=== PATIENT | male | born 1990 | race Caucasian/White ===

== ENCOUNTER 2018-05-09 20:21 | Emergency (ER) | payer OTHER ==
[~2018-05-09] VITALS: Ht 185.4 cm; Wt 72.6 kg
[2018-05-09 20:21] VITALS: BP_SYST 131
[2018-05-09] MEDS ORDERED: NACL 0.9% 1,000 ML IV ONE (20:44)
[2018-05-09 22:05] LABS: BASOPHILS # (AUTO) 0.4 K/uL (0.0-0.2); BASOPHILS % (AUTO) 4.6 % (0.0-2.0); EOSINOPHILS # (AUTO) 0.1 K/uL (0.0-0.4); EOSINOPHILS % (AUTO) 0.6 % (0.0-4.0); HEMATOCRIT 47.4 % (36-54); HEMOGLOBIN 15.4 g/dL (14.0-18.0); LYMPHOCYTES # (AUTO) 1.6 K/uL (1.0-5.5); LYMPHOCYTES % (AUTO) 17.2 % (20.5-51.5); MEAN CORPUSCULAR HEMOGLOBIN 27 pg (27-31); MEAN CORPUSCULAR HGB CONC 33 % (32-36); MEAN CORPUSCULAR VOLUME 82 fL (79.0-98.0); MONOCYTES # (AUTO) 0.4 K/uL (0.0-1.0); MONOCYTES % (AUTO) 4.4 % (1.7-9.3); NEUTROPHILS # (AUTO) 7.1 K/uL (1.8-7.7); NEUTROPHILS % (AUTO) 73.2 % (40.0-70.0); PLATELET COUNT (AUTO) 422 K/uL (130-430); RED CELL DISTRIBUTION WIDTH 13.9 % (9.0-15.0); WHITE BLOOD COUNT (AUTO) 9.6 K/uL (4.8-10.8)
[2018-05-09 22:24] LABS: ANION GAP 13 (5-15); CALCIUM 9.7 mg/dL (8.4-11.0); CHLORIDE 101 mmol/L (98-107); CREATININE 0.78 mg/dL (0.55-1.30); GLUCOSE 94 mg/dL (70-99); POTASSIUM 4.4 mmol/L (3.5-5.1); SODIUM SERUM 137 mmol/L (136-145); UREA NITROGEN, BLOOD 11 mg/dL (8-21)
[2018-05-09 22:29] LABS: ALBUMIN 4.1 g/dL (3.4-4.8); ASPARTATE AMINOTRANSFERASE 21 U/L (10-37); TOTAL BILIRUBIN 0.5 mg/dL (0.0-1.0)
[2018-05-09] MEDS ORDERED: ONDANSETRON 4 MG ODT TAB PO ONE (22:30)
[2018-05-09] MEDS ORDERED: KETOROLAC TROMETHAMINE 30 MG VIAL IM ONE (22:30)
[2018-05-09 22:32] LABS: ALCOHOL, BLOOD < 3 mg/dL (<10); GFR AFRICAN AMERICAN 155 mL/min (>90); INR 1.1 (0.80-1.20); PROTHROMBIN TIME 11.3 SECS (9.5-12.5)
[2018-05-09 22:48] LABS: ALANINE AMINOTRANSFERASE 26 U/L (12-78)
[2018-05-09 23:04] VITALS: BP_SYST 127
== END 2018-05-09 22:59 ==
LOC: SED 20:21
DX: R55 Syncope and collapse (principal); F11.23 Opioid dependence with withdrawal
CPT/HCPCS: 36415; 71045; 80053; 84484; 85025; 85610; 85730; 93005; 96372; 99284; G0482; J1885; Q0162

== ENCOUNTER 2021-09-08 09:26 | Emergency (ER) | payer OTHER ==
[~2021-09-08] VITALS: Ht 188 cm; Wt 90.7 kg
[2021-09-08 09:26] VITALS: BP_SYST 150
--- NOTE | 2021-09-08 09:26 | NUR ---
BROUGHT IN BY [facility] AND [facility], PLACED IN BED #1 AND TRIAGED. REPORT GIVEN TO TYLER. ALL STAFF TO BEDSIDE.
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
--- NOTE | 2021-09-08 10:09 | NUR ---
MOTHER OF PT CALLED RE: SON. MOTHER STATES HE IS A HEROIN ADDICT AND NINOSKA ALARCON SPEAKING WITH MOTHER.
[2021-09-08] MEDS ORDERED: NALOXONE HCL 2 MG/2 ML SYR (NARCAN) IM ONE ×2 (11:45→12:00)
[2021-09-08] MEDS ORDERED: NALOXONE HCL 2 MG/2 ML SYR ONE (11:52)
[2021-09-08] MEDS ORDERED: NACL 0.9% 1,000 ML IV ONE (12:00)
--- NOTE | 2021-09-08 12:04 | NUR ---
PT IS ALERT AND ORIENTED, AWAKE. PT ASKING FOR WATER, WATER GIVEN PER REQUEST
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
[2021-09-08] MEDS ORDERED: PROCHLORPERAZINE EDISYLATE 10 MG/2 ML VIAL IM ONE (12:15)
--- NOTE | 2021-09-08 12:15 | NUR ---
DR SAUNDERS SPOKE WITH MALLY ALARCON AT [facility] DEPT
[2021-09-08 12:21] VITALS: BP_SYST 135
== END 2021-09-08 12:08 | disposition left against medical advice (07) ==
LOC: SED 09:26
DX: R41.82 Altered mental status, unspecified (principal); Z53.21 Procedure and treatment not carried out due to patient leaving prior to being seen by health care provider
CPT/HCPCS: 71045; J2310

== ENCOUNTER 2022-09-11 22:29 | Emergency (ER) | payer MEDICAID, OTHER ==
[2022-09-11 22:36] VITALS: BP_SYST 136
[2022-09-11] MEDS ORDERED: NACL 0.9% 1,000 ML IV ONE (22:45)
[2022-09-11 23:08] LABS: BASOPHILS # (AUTO) 0.1 K/uL (0.0-0.2); BASOPHILS % (AUTO) 1.1 % (0.0-2.0); EOSINOPHILS # (AUTO) 0.2 K/uL (0.0-0.4); EOSINOPHILS % (AUTO) 2.3 % (0.0-4.0); HEMATOCRIT 44.1 % (36-54); HEMOGLOBIN 15.1 g/dL (14.0-18.0); LYMPHOCYTES # (AUTO) 3.2 K/uL (1.0-5.5); LYMPHOCYTES % (AUTO) 34.9 % (20.5-51.5); MEAN CORPUSCULAR HEMOGLOBIN 29 pg (27-31); MEAN CORPUSCULAR HGB CONC 34 % (32-36); MEAN CORPUSCULAR VOLUME 84 fL (79.0-98.0); MONOCYTES # (AUTO) 0.7 K/uL (0.0-1.0); MONOCYTES % (AUTO) 8.2 % (1.7-9.3); NEUTROPHILS # (AUTO) 4.9 K/uL (1.8-7.7); NEUTROPHILS % (AUTO) 53.5 % (40.0-70.0); PLATELET COUNT (AUTO) 322 K/uL (130-430); RED BLOOD CELL COUNT(AUTO) 5.27 MIL/uL (4.2-6.2); RED CELL DISTRIBUTION WIDTH 14.1 % (9.0-15.0); WHITE BLOOD COUNT (AUTO) 9.1 K/uL (4.8-10.8)
[2022-09-11 23:58] LABS: ANION GAP 17 (5-15); CHLORIDE 102 mmol/L (98-107); CREATININE 1.19 mg/dL (0.55-1.30); GFR AFRICAN AMERICAN 92 mL/min (>90); GLUCOSE 92 mg/dL (70-99); UREA NITROGEN, BLOOD 10 mg/dL (8-21)
[2022-09-12 00:06] LABS: ALANINE AMINOTRANSFERASE 25 U/L (12-78); ALBUMIN 4.7 g/dL (3.4-4.8); ALCOHOL, BLOOD 8 mg/dL (<10); ASPARTATE AMINOTRANSFERASE 23 U/L (10-37); TOTAL BILIRUBIN 1.1 mg/dL (0.0-1.0)
[2022-09-12 00:08] LABS: ACETAMINOPHEN < 1 ug/mL (1-30)
[2022-09-12 03:35] VITALS: BP_SYST 118
== END 2022-09-12 03:39 | disposition left against medical advice (07) ==
LOC: SED 22:29
DX: R41.82 Altered mental status, unspecified (principal); F11.129 Opioid abuse with intoxication, unspecified; Z79.899 Other long term (current) drug therapy
CPT/HCPCS: 99284; 96360; 80053; 85025; 36415; 93005; G0482; J7030; G0480; G0481